=== PATIENT | female | born 1975 | race Caucasian/White ===

== ENCOUNTER → 2017-02-12 | Outpatient (CLI) | payer BC ==
[~2017-02-12] MED LIST: BACITRACIN15 G1 TP; LEVOTHYROXINE100 MCG PO; NORCO 5-325 TA1 EACH PO; TRIAMTERENE-HC1 EACH PO
== END | disposition home or self-care (01) ==
LOC: PTH.S 09:00
DX: Z01.818 Encounter for other preprocedural examination (principal)

== ENCOUNTER 2017-02-19 08:18 | Observation (INO) | payer BC ==
[~2017-02-19] VITALS: Ht 162.6 cm; Wt 121.6 kg
[2017-02-21] MEDS ORDERED: TRIAMTERENE-HC1 EACH PO (08:22)
[2017-02-21] MEDS ORDERED: LEVOTHYROXINE100 MCG PO (08:22)
[2017-02-21] MEDS ORDERED: NORCO 5-325 TA1 EACH PO (08:23)
[2017-02-21] MEDS ORDERED: BACITRACIN15 G1 TP (08:23)
--- NOTE | 2017-03-05 10:16 | HP ---
ADMIT: 02/19/2017 RM/LOC: [facility] MR#: [id number] [address] [id number] DENISSE BARNES [address] [place] [address] Pre-OP History and Physical SEX: F AGE: 41 : 1975 DATE OF SERVICE: HISTORY OF PRESENT ILLNESS: Denisse is 41 years old. She is admitted at this time for thyroidectomy and evaluation and treatment of thyroid nodules. She developed calcifications. Thyroid ultrasound shows a small (6 mm) but calcified nodule in the left lobe and calcifications are eccentric with an area of hypodense tissue surrounding the calcifications up to 11 mm. She has developed hypopharyngeal compression symptoms. Does have history and exam consistent with acid reflux, but the nodule itself is tender to palpation. The nodule has been monitored over the past 1 year and followup ultrasound shows that the nodule has increased to a 1 cm diameter. It is solid and there are persistent calcifications. She has also developed hypothyroidism as evidenced by elevated TSH at 6.458. In light of the enlargement and the calcifications, excisional biopsy has been recommended. We have discussed the rationale for surgery. We have also discussed possible total thyroidectomy especially in light of her development of hypothyroidism and likely need for lifelong thyroid hormone replacement. The risks involved have been discussed in detail including risks of anesthesia, risks related to the recurrent laryngeal nerves, parathyroid glands, as well as surgical risks of infection and bleeding, and we have discussed resultant surgical scar. She is in good understanding of the discussion. She is in favor of total thyroidectomy for diagnostic and treatment purposes of the thyroid nodule and also to help prevent a chance of recurrent nodules that would require further treatment down the line. She is admitted at this time for general anesthesia. MEDICATIONS: Prior to admission: 1. Triamterene. 2. Levothyroxine. ALLERGIES: NONE. PAST MEDICAL HISTORY: No surgeries. No hospitalizations. REVIEW OF SYSTEMS: Positive for recent diagnosis of high blood pressure necessitating institution of triamterene therapy. She does not have known lower respiratory, genitourinary, hematologic, or neurologic disorders. SOCIAL HISTORY: She does not drink alcohol. She does drink caffeine occasionally and does smoke cigarettes. FAMILY HISTORY: No known anesthetic complications, coagulopathies. No known family history of thyroid disease or thyroid cancer. PHYSICAL EXAMINATION: GENERAL: A 41-year-old who is alert. She is in no acute distress. 5 feet 3 inches, 260 pounds. HEENT: Pupils are equal. Conjunctivae clear. No proptosis. Extraocular movements intact. Ear canals, TMs, and middle ears normal. Nose, mouth, pharynx, larynx, good symmetry, structure, and function. No lesions. ADMIT: 02/19/2017 RM/LOC: [facility] MR#: [id number] [address] [place] [id number] [place] [address] Pre-OP History and Physical SEX: F AGE: 41 : 1975 NECK: Palpable nodule, tender, left thyroid lobe, midportion. No other cervical adenopathy or neck masses palpable. LUNGS: Clear. HEART: Rhythm regular. EXTREMITIES: No cyanosis. No edema. IMPRESSION: 1. Left thyroid nodule, solid, with calcifications. 2. Hypothyroid. 3. High blood pressure. PLAN: Thyroidectomy. Shcuyler Ivey MD/ nunu JOB #: [id number] CC: Schuyler Ivey, Attending Physician UNKNOWN, Family Physician
--- NOTE | 2017-03-09 07:22 | OR ---
ADMIT: 02/19/2017 RM/LOC: [facility] MR#: [id number] [address] [address] JOSUE BARNES [address] [place] [address] Operative/Delivery Room Report SEX: F AGE: 41 : 1975 SURGERY DATE: 02/19/2017 SURGEON: Schuyler Ivey MD PREOPERATIVE DIAGNOSIS: Thyroid nodules. POSTOPERATIVE DIAGNOSIS: Papillary thyroid carcinoma, left thyroid nodule. OPERATION: Total thyroidectomy. ANESTHESIA: General oral endotracheal. BLOOD LOSS: 40 mL. DRAINS: Hector-Green 7 mm. PROCEDURE: With the patient in supine position, general endotracheal anesthesia, her eyes were taped. The anterior neck was extended slightly. Anterior neck was prepped with ChloraPrep, allowed 3 minutes to dry and the patient was draped sterilely. An incision made following natural skin crease low in the neck, marked preoperatively, carried through the skin, subcutaneous tissue, and platysma muscle. Skin flap was elevated superiorly and subplatysmally. The thyroid isthmus was identified and the thyroid gland was exposed by retraction of the strap muscles laterally. This required a combination of blunt dissection. Afferent and efferent vessels were treated with electrocautery. The left thyroid lobe had a hard nodule in midportion adjacent to the trachea. Left thyroid lobectomy was performed by the thyroid gland from the surrounding tissues using combination of sharp and blunt dissection. The inferior thyroid artery and veins were identified, clamped, divided, and coagulated as was the middle thyroid vein. The gland was pedicled at the Lester's ligament which contained a hard nodule and adherent to the trachea. The recurrent laryngeal nerve was identified, its identity confirmed by NIM-2 stimulation and its function confirmed intact following lobectomy by NIM-2 stimulation. Each parathyroid gland on the left side was also identified and preserved during the dissection. The Lester's ligament was then from the trachea. There was dense adherence in this area and the gland was then pedicled at the isthmus. The left lobe was sent for examination which confirmed presence of papillary thyroid carcinoma. A right thyroid lobectomy was then performed in similar fashion. The gland easier from the trachea on the right side than the left, but again the ADMIT: 02/19/2017 RM/LOC: [facility] MR#: [id number] [address] [address] JOSUE BARNES [address] [place] [address] Operative/Delivery Room Report SEX: F AGE: 41 : 1975 recurrent laryngeal nerves and parathyroid glands were identified and preserved with the function of the nerve confirmed intact by NIM-2 stimulation. Following the procedure, the wound was irrigated with saline. Total blood loss for the procedure 40 mL but good hemostasis at completion. A 7 mm Hector-Green drain was placed, brought out the right side of strap muscles and incision. Wound was closed in layers with 3-0 chromic catgut to the midline strap muscles, inverted simple catgut sutures to the platysmal layer, and a running horizontal mattress suture to the skin. She tolerated this very well. The drain was sutured to the skin with silk. A thyroid dressing applied. She emerged from general anesthesia in the operating room, extubated in the operating room, and transferred to the recovery room in good condition. Schuyler Ivey MD/ nunu JOB #: [id number] CC: Schuyler Ivey MD, Attending Physician Afshin Fischer MD, Family Physician
== END 2017-02-20 09:35 | disposition home or self-care (01) ==
LOC: PREOBSVTOIN 08:18 → 6PED 08:19 → WOR 08:19 → 6PED 08:19
PROVIDERS: ADMIT Otolaryngology
PROC: 0GTK0ZZ Resection of Thyroid Gland, Open Approach (ICD-10-PCS; principal; 2017-02-19)
DX: C73 Malignant neoplasm of thyroid gland (principal); I10 Essential (primary) hypertension; K21.9 Gastro-esophageal reflux disease without esophagitis; F17.210 Nicotine dependence, cigarettes, uncomplicated; E03.9 Hypothyroidism, unspecified; Z79.899 Other long term (current) drug therapy